=== PATIENT | male | born 1985 | race Caucasian/White ===

== ENCOUNTER 2022-08-28 22:35 | Emergency (ER) | payer MEDICAID, SELFPAY ==
[2022-08-28 22:43] VITALS: BP 122/76; PULSE 80; RESP 18; TEMP 37.8; O2SAT 97
--- NOTE | 2022-08-28 23:35 | W.ED.FEVER ---
HPI - Fever General: Chief Complaint: Fever Stated Complaint: fever, n/v/d Time Seen by Provider: 08/28/22 23:35 History of Present Illness: Mr. Correa is a 36-year-old gentleman with history of smoking presenting to the ER for respiratory symptoms. Reports congestion and sinus pain for approximately 1 week. Has now also developed fevers, cough, sore throat, congestion, nausea vomiting, generalized malaise. Density symptoms is moderate. Worse with exertion and coughing. No other specific changes in health, exacerbating, or alleviating factors identified. Onset (ago): day(s) Exacerbating factors: exertion Relieving factors: nothing Associated symptoms: Reports chills, cough and headache(s) Review of Systems General: Reports: 10 or more systems reviewed and unremarkable except in HPI and below Const: Reports: chills Neuro: Reports: headache(s) PFS ED PFSH: Medical History (Updated 09/04/22 @ 20:25 by Amilcar Razo MD) No significant past medical history Surgical History (Updated 09/04/22 @ 20:25 by Amilcar Razo MD) No significant past surgical history Physical Exam Const: COMMON NORMALS: alert GENERAL APPEARANCE: cooperative and well developed HENMT: COMMON NORMALS: normocephalic and atraumatic HEAD & SCALP: normocephalic and atraumatic THROAT: posterior oropharynx normal Eye: COMMON NORMALS: conjunctivae normal CONJUNCTIVA: Yes conjunctivae normal SCLERA: sclerae normal Neck/C-Spine: COMMON NORMALS: supple GENERAL: Yes trachea midline Resp: COMMON NORMALS: normal respiratory effort EFFORT & INSPECTION: Yes able to speak in complete sentences AUSCULTATION: bronchial breath sounds Cardio: COMMON NORMALS: regular rate and regular rhythm RATE: regular rate RHYTHM: regular rhythm GI: COMMON NORMALS: Soft to palpation PALPATION: Yes Soft to palpation and No Tenderness to palpation present (GI) Extremity: GENERAL: Yes normal exam except as noted and No edema Neuro: COMMON NORMALS: moves all extremities SENSORIUM/ORIENTATION: Yes alert and No Orientation impaired Psych: COMMON NORMALS: mental status grossly normal and Normal thought process present THOUGHT PROCESS: Normal thought process present Course Vital Signs: Vital signs: Vital Signs Temperature 99.7 F H 08/29/22 02:00 Pulse Rate 77 08/29/22 02:00 Respiratory Rate 20 H 08/29/22 02:00 Blood Pressure 132/89 08/29/22 02:00 Pulse Oximetry 93 08/29/22 02:00 Oxygen Delivery Me thod Room Air 08/29/22 00:29 MDM - Fever Medical Decision Making 36-year-old male presenting with respiratory symptoms that have been worsening. Mildly ill however nontoxic on exam. Labs with mild leukocytosis, normal hemoglobin, no significant metabolic abnormality, rapid swabs negative. Chest x-ray with left lower lobe possible abnormality, no definitive lobar consolidation or pneumothorax. Patient improved with ED treatment, Tessalon Perles, fluids, steroids, antibiotic. Patient most likely has sinusitis and bronchitis which are bacterial in nature. The results of ED evaluation were discussed with the patient including prescriptions and/or symptomatic cares (if applicable) including appropriate and responsible use, followup plan, and return precautions. The patient verbalized understanding and felt safe for discharge. Medical Records I reviewed the patient's medical records. Lab Data I reviewed the patient's lab results. 08/28/22 23:42 08/28/22 23:42 Radiology Impressions Chest X-Ray 08/28/22 23:41 IMPRESSION: 1. Small areas of left lung base atelectasis, scarring, or, less likely, developing airspace disease. Advise correlation. 2. Mild cardiomegaly. Laboratory Results WBC 10.9 10^3/uL (4.0-10.0) H 08/28/22 23:42 RBC 5.03 10^6/uL (4.1-5.3) 08/28/22 23: Hgb 15.8 g/dL (11.7-16.6) 08/28/22 23: Hct 45.7 % (42.0-52.0) 08/28/22 23: MCV 90.9 fl (80-94) 08/28/22 23: MCH 31.4 pg (28.0-34.0) 08/28/22 23: MCHC 34.6 g/dL (30.0-36.0) 08/28/22 23: RDW 12.0 % (12.1-15.1) L 08/28/22 23: Plt Count 295 10^3/cmm (130-400) 08/28/22 23: MPV 9.7 fL (7.4-10.4) 08/28/22 23:42 Neut % (Auto) 60.8 % 08/28/22 23:42 Lymph % (Auto) 25.0 % 08/28/22 23:42 [place] % (Auto) 11.6 % 08/28/22 23:42 Eos % (Auto) 1.8 % 08/28/22 23:42 Baso % (Auto) 0.6 % 08/28/22 23:42 Neut # (Auto) 6.62 10^3/uL (1.8-7.7) 08/28/22 23:42 Lymph # (Auto) 2.7 10^3/uL (0.8-4.8) 08/28/22 23:42 [place] # (Auto) 1.3 10^3/uL (0.2-0.9) H 08/28/22 23:42 Eos # (Auto) 0.2 10^3/uL (0.0-0.8) 08/28/22 23:42 Baso # (Auto) 0.1 10^3/uL (0.0-0.1) 08/28/22 23:42 Nucleated RBC % (auto) 0 % 08/28/22 23: Nucleated RBCs # 0.0 /100WBC 08/28/22 23:42 Sodium 137 mmol/L (136-145) 08/28/22 23:42 Potassium 3.9 mmol/L (3.5-5.1) 08/28/22 23:42 Chloride 103 mmol/L (98-107) 08/28/22 23:42 Carbon Dioxide 23 mmol/L (22-29) 08/28/22 23:42 Anion Gap 14.9 (5-19) 08/28/22 23:42 BUN 8 mg/dL (6-20) 08/28/22 23:42 Creatinine 0.7 mg/dL (0.7-1.2) 08/28/22 23:42 GFR Calculation 126.9 mL/min (90-130) 08/28/22 23:42 Glucose 95 mg/dL (65-115) 08/28/22 23:42 Calculated Osmolality 282 mOsm/kg (285-295) L 08/28/22 23:42 Calcium 9.3 mg/dL (8.5-10.5) 08/28/22 23:42 Total Bilirubin 0.3 mg/dL (0.15-1.2) 08/28/22 23:42 AST 20 U/L (0-40) 08/28/22 23:42 ALT 30 U/L (0-41) 08/28/22 23:42 Alkaline Phosphatase 95 U/L (40-130) 08/28/22 23:42 Total Protein 6.9 g/dL (6.6-8.7) 08/28/22 23:42 Albumin 3.6 g/dL (3.5-5.2) 08/28/22 23:42 Globulin 3.3 g/dL (1.3-4.6) 08/28/22 23:42 Urine Color Yellow (Yellow) 08/29/22 00:36 Urine Appearance Clear (CLEAR) 08/29/22 00:36 Urine pH 6 (5-7) 08/29/22 00:36 Ur Specific [place] 1.015 (1.005-1.030) 08/29/22 00:36 Urine Protein Neg (Negative) 08/29/22 00:36 Urine Glucose (UA) Norm (Normal) 08/29/22 00:36 Urine Ketones Negative (Negative) 08/29/22 00:36 Urine Blood Neg (Negative) 08/29/22 00:36 Urine Nitrate Negative (Negative) 08/29/22 00:36 Urine Bilirubin Neg (Negative) 08/29/22 00:36 Urine Urobilinogen Norm mg/dL (Negative) 08/29/22 00:36 Ur Leukocyte Esterase Negative (Negative) 08/29/22 00:36 Influenza Type A Ag negative (Negative) 08/29/22 00:36 Influenza Type B Ag negative (Negative) 08/29/22 00:36 SARS-CoV-2 Ag (Rapid) negative (Negative) 08/29/22 00:36 Group A Strep Rapid Negative (Negative) 08/29/22 00:36 Discharge Plan Discharge Patient Disposition: Home Clinical Impression: Sinusitis, Bronchitis Condition: Stable Prescriptions: New albuterol sulfate 90 mcg/actuation HFA aerosol inhaler 2 inh inhalation Q4H PRN (Reason: shortness of breath or wheezing) Qty: 8.5 0RF amoxicillin-pot clavulanate 875-125 mg tablet 1 tab PO BID Qty: 20 0RF Discharge Orders: Discharge ED (Routine); Ordered 08/29/22 Ordered By: Amilcar Razo Patient Instructions: How to Stop Smoking (ED), Sinusitis (ED), Acute Bronchitis (ED) Activity Restrictions/Additional Instructions: Thank you for visiting the emergency department. You were seen and evaluated for respiratory illness. The exact cause of your symptoms is unclear though given duration of symptoms and description of symptoms as well as physical exam findings will be treated with antibiotics. I will prescribe steroids and antibiotics. Please also use your albuterol metered-dose inhaler 2 puffs every 4 hours for 24 hours followed by 2 puffs every 6 hours for 24 hours followed by 2 puffs every 8 hours for 24 hours and then return to the normal schedule. Please follow-up with a primary care provider. I recommend quitting smoking. Return to the emergency department for uncontrolled symptoms or anything else that you are concerned about and feel needs emergency department evaluation. Coding Level of Care Code ED [employer] Faculty Member for Miriam Suarez
[2022-08-28 23:36] VITALS: BP 132/89; PULSE 100; RESP 16; TEMP 37.6; O2SAT 96
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
[2022-08-28 23:59] LABS: Basophils # 0.1 10^3/uL (0.0-0.1); Basophils % 0.6 %; Eosinophils # 0.2 10^3/uL (0.0-0.8); Eosinophils % 1.8 %; Hematocrit 45.7 % (42.0-52.0); Hemoglobin 15.8 g/dL (11.7-16.6); Lymphocytes # 2.7 10^3/uL (0.8-4.8); Mean Corpuscular HGB Conc 34.6 g/dL (30.0-36.0); Mean Corpuscular Hemoglobin 31.4 pg (28.0-34.0); Mean Corpuscular Volume 90.9 fl (80-94); Mean Platelet Volume 9.7 fL (7.4-10.4); Monocytes # 1.3 10^3/uL (0.2-0.9); Monocytes % 11.6 %; Neutrophils # 6.62 10^3/uL (1.8-7.7); Neutrophils % 60.8 %; Nucleated Red Blood Cells % 0 %; Platelet Count 295 10^3/cmm (130-400); Red Blood Count 5.03 10^6/uL (4.1-5.3); White Blood Count 10.9 10^3/uL (4.0-10.0)
[2022-08-29 00:15] LABS: Alanine Aminotransferase 30 U/L (0-41); Albumin Level 3.6 g/dL (3.5-5.2); Alkaline Phosphatase 95 U/L (40-130); Anion Gap 14.9 (5-19); Aspartate Amino Transferase 20 U/L (0-40); Blood Urea Nitrogen 8 mg/dL (6-20); Calcium 9.3 mg/dL (8.5-10.5); Carbon Dioxide 23 mmol/L (22-29); Chloride 103 mmol/L (98-107); Globulin 3.3 g/dL (1.3-4.6); Glomerular Filtration Rate 126.9 mL/min (90-130); Glucose 95 mg/dL (65-115); Osmolality Calculated 282 mOsm/kg (285-295); Potassium 3.9 mmol/L (3.5-5.1); Sodium 137 mmol/L (136-145); Total Bilirubin 0.3 mg/dL (0.15-1.2); Total Protein 6.9 g/dL (6.6-8.7)
[2022-08-29] MEDS: ipratropium-albuterol 3 mL Neb INHALATION (00:22)
[2022-08-29 00:24] VITALS: PULSE 82; RESP 20; O2SAT 99
[2022-08-29 00:29] VITALS: PULSE 77; RESP 20; O2SAT 100
[2022-08-29] MEDS: benzonatate 100 mg Capsule PO (00:42)
[2022-08-29] MEDS: sodium chloride 0.9% 1,000 ML 999 ML IV (00:44)
[2022-08-29 00:49] VITALS: BP 132/89; O2SAT 93
[2022-08-29 00:57] LABS: Add Urine Microscopic? NO; Charge for UA Resulting for Rev
[2022-08-29 00:59] LABS: Bilirubin Urine Neg (Negative); Blood Urine Neg (Negative); Glucose Urine UA Norm (Normal); Ketones Urine Negative (Negative); Leukocyte Esterase Urine Negative (Negative); Nitrate Urine Negative (Negative); Protein Urine Neg (Negative); Specific Gravity, Urine 1.015 (1.005-1.030); Urine Appearance Clear (CLEAR); Urine Color Yellow (Yellow); Urobilinogen Urine Norm (Negative); pH Urine 6 (5-7)
[2022-08-29 01:07] LABS: Rapid Strep A Test Negative (Negative)
[2022-08-29 01:14] LABS: Influenza A by IFA negative (Negative); Influenza B by IFA negative (Negative); SARS Covid-2 Antigen negative (Negative)
[2022-08-29] MEDS: amoxicillin-clav 875-125 mg Tablet 1 TAB PO (01:52)
[2022-08-29 02:00] VITALS: BP 132/89; PULSE 77; RESP 20; TEMP 37.6; O2SAT 93
--- NOTE | 2022-09-03 13:17 | DCPLANNER ---
academic manager called patient due to no primary care physician - patient stated that he is wanting to wait to get a primary care physician until he gets insurance. academic manager gave patient the information to [facility], where he can apply for the sliding scale.
== END 2022-08-29 02:04 | disposition home or self-care (01) ==
PROVIDERS: Emergency Provider Emergency Medicine
DX: J32.9 Chronic sinusitis, unspecified (principal); J40 Bronchitis, not specified as acute or chronic
CPT/HCPCS: 71045; 80053; 81003; 85025; 87081; 87426; 87804; 87880; 94640; 96374; 99284; J2930; J7030

== ENCOUNTER 2022-12-13 07:59 | Inpatient (IN) | payer MEDICAID, SELFPAY ==
[2022-12-13 08:05] VITALS: BP 154/97; PULSE 82; RESP 20; O2SAT 98
[2022-12-13 08:07] VITALS: BMI 34.4
[2022-12-13 08:14] VITALS: TEMP 36.8
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
[2022-12-13 08:41] LABS: Basophils # 0.1 10^3/uL (0.0-0.1); Basophils % 1.2 %; Eosinophils # 0.2 10^3/uL (0.0-0.8); Eosinophils % 2.5 %; Hematocrit 46.2 % (42.0-52.0); Hemoglobin 15.8 g/dL (11.7-16.6); Lymphocytes # 2.9 10^3/uL (0.8-4.8); Lymphocytes % 35.3 %; Mean Corpuscular HGB Conc 34.2 g/dL (30.0-36.0); Mean Corpuscular Hemoglobin 31.2 pg (28.0-34.0); Mean Corpuscular Volume 91.1 fl (80-94); Mean Platelet Volume 10.1 fL (7.4-10.4); Monocytes # 0.6 10^3/uL (0.2-0.9); Monocytes % 7.7 %; Neutrophils # 4.28 10^3/uL (1.8-7.7); Neutrophils % 53.1 %; Nucleated Red Blood Cells % 0 %; Platelet Count 269 10^3/cmm (130-400); Red Blood Count 5.07 10^6/uL (4.1-5.3); White Blood Count 8.1 10^3/uL (4.0-10.0)
--- NOTE | 2022-12-13 08:41 | PC.PHAR ---
PT STATES HE DOES TAKE MEDICATIONS. WAITING FOR PHARMACY CONFIRMATION FROM [place].
[2022-12-13 08:42] LABS: Amphetamines Screen Urine Negative (Negative); Barbiturates Screen Urine Negative (Negative); Benzodiazepines Screen Urine Negative (Negative); Cocaine Screen Urine Negative (Negative); Opiate Screen Urine Negative (Negative); PCP Screen Urine Negative (Negative); THC Screen Urine Negative (Negative)
--- NOTE | 2022-12-13 08:46 | PC.PHAR ---
[facility] [place], [place], IS NOT OPEN ON SAT AND SUN. UNABLE TO VERIFY PT'S MEDS. HE STATES HE TAKES PROTONIX 40 MG AND ABLILIFY (UNKNOWN STRENGTH)
[2022-12-13] MEDS: LORazepam 2 mg Tablet PO (08:56)
[2022-12-13 09:11] LABS: Alanine Aminotransferase 28 U/L (0-41); Alkaline Phosphatase 108 U/L (40-130); Anion Gap 15.7 (5-19); Aspartate Amino Transferase 24 U/L (0-40); Blood Urea Nitrogen 13 mg/dL (6-20); Calcium 9.3 mg/dL (8.5-10.5); Carbon Dioxide 20 mmol/L (22-29); Chloride 104 mmol/L (98-107); Globulin 2.6 g/dL (1.3-4.6); Glomerular Filtration Rate 108.2 mL/min (90-130); Glucose 107 mg/dL (65-115); Osmolality Calculated 283 mOsm/kg (285-295); Potassium 3.7 mmol/L (3.5-5.1); Sodium 136 mmol/L (136-145); Total Bilirubin 0.2 mg/dL (0.15-1.2); Total Protein 6.6 g/dL (6.6-8.7)
[2022-12-13 09:43] LABS: Acetaminophen < 5.0 ug/mL (10-30); Alcohol Level < 10 mg/dL (0-10); Salicylate < 0.3 mg/dL (3-10)
[2022-12-13 10:42] VITALS: BP 117/75; PULSE 72; RESP 16; TEMP 36.9; O2SAT 97
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
[2022-12-13] MEDS: acetaminophen 325 mg Tablet 650 MG PO (12:21)
[2022-12-13 14:00] VITALS: BP 110/69; PULSE 65; RESP 15; TEMP 36.6; O2SAT 96
[2022-12-13] MEDS: hyDROXYzine 25 mg Capsule 50 MG PO (16:46)
--- NOTE | 2022-12-13 16:47 | PC.NURSE ---
Patient requesting medication for anxiety, states he knows when he is getting anxious because his heart starts beating faster. Patient said in a very angry tone that he is tired of hearing her (in reference to another patient) yell all day and that he knows it is all for show. This RN reassured patient that every patient is here for a reason and offered vistaril 50mg PO, which patient took.
[2022-12-13 19:36] VITALS: BP 111/65; PULSE 90; RESP 18; TEMP 37.2; O2SAT 95
[2022-12-13] MEDS: nicotine 4 mg lozenge MUCOUS MEM (21:49)
[2022-12-14 06:00] VITALS: BP 112/71; PULSE 78; RESP 18; TEMP 36.6; O2SAT 96
[2022-12-14] MEDS: nicotine 4 mg lozenge MUCOUS MEM ×4 (12:40→20:33)
[2022-12-14 13:39] VITALS: BP 122/80; PULSE 83; RESP 16; TEMP 36.8; O2SAT 98
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
[2022-12-14] MEDS: hyDROXYzine 25 mg Capsule 50 MG PO (16:23)
[2022-12-14] MEDS: ARIPiprazole 10 mg Tablet 5 MG PO (17:31)
[2022-12-14 20:00] VITALS: BP 112/80; PULSE 101; RESP 18; TEMP 36.8; O2SAT 96
[2022-12-14] MEDS: OLANZapine 5 mg ODT PO (20:33)
--- NOTE | 2022-12-14 21:08 | PC.NURSE ---
COMPLETED ASSESSMENT IN ROOM. STATES HE IS VERY ANXIOUS AND NEEDS SOMETHING. PT TOOK VISTARIL ON LAST SHIFT AND HE REPORTS IT HELPED BUT HE IS STILL RESTLESS DUE TO ANOTHER PT YELLING AND SCREAMING. DENIES PAIN. DENIES SI/HI AND AVH AT THIS TIME. PT STATES PRIOR TO COMING IN HE WAS SUICIDAL AND WANTED TO DRIVE HIS CAR INTO A TREE. PT STATES HE HAS NO PLAN AT THIS TIME AND STATES MANY REASONS TO LIVE.
[2022-12-15 06:00] VITALS: BP 107/66; PULSE 60; RESP 16; O2SAT 92
[2022-12-15] MEDS: ARIPiprazole 10 mg Tablet PO (08:22)
[2022-12-15] MEDS: nicotine 4 mg lozenge MUCOUS MEM ×5 (11:09→23:33)
[2022-12-15] MEDS: OLANZapine 5 mg ODT PO (11:11)
--- NOTE | 2022-12-15 11:13 | PC.NURSE ---
Administered zyprexa 5mg odt to patient. Patient becoming very agitated, clenching his fists due to another patient's behaviors. His face began getting red, he started speaking through his teeth, and became tearful. This RN asked the patient if he would like to go to the other hallway to go to group where it would be quieter and he agreed.
[2022-12-15 14:00] VITALS: BP 120/73; PULSE 82; RESP 16; TEMP 36.4; O2SAT 94
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
[2022-12-15 20:15] VITALS: BP 103/64; PULSE 82; RESP 16; TEMP 37.1; O2SAT 92
[2022-12-15] MEDS: hyDROXYzine 25 mg Capsule 50 MG PO (23:33)
--- NOTE | 2022-12-15 23:34 | PC.NURSE ---
PT INCREASINGLY AGITATED. VISTARIL 50 MG PO GIVEN NEEDED. PT IS REQUESTING HE BE DISCHARGED IN THE MORNING DUE TO HAVING AN EYE APT TOMORROW. PT WAS EDUCATED THAT HE HAS A 96 HOUR HOLD. PT IS UPSET ABOUT BEING ON A HOLD BUT UNDERSTANDS WHY HE WAS PLACED ON ONE. STATES HE CAME IN TO GET HIS MEDICATIONS ADJUSTED AND FEELS HE IS READY TO DISCHARGE. PT ENCOURAGED TO SPEAK TO DR. RIVERA IN THE AM DUE TO THE HAVING TO BE THE ONE WHO RELEASES HIM. ALL QUESTIONS ANSWERED AND SUPPORT VOICED. PT STARTED ABILIFY 10 MG TODAY.
--- NOTE | 2022-12-16 00:15 | PC.NURSE ---
PT AT NURSES STATION AND SHOWS THIS RN THAT HE HAS CHIGGER BITES TO BILATERAL LOWER EXTREMITIES THAT ARE ITCHING HIM. MULTIPLE BITES VISUALIZED, NO DRAINAGE NOTED. NEW ORDERS RECEIVED FOR HYDROCORTISONE CREAM 1% TOPICAL TO LOWER EXTREMITIES QID PRN FOR ITCHING/RASH. EDUCATED PT ON NEW ORDERS AND MEDICATION. VOICES UNDERSTANDING.
--- NOTE | 2022-12-16 03:00 | PC.NURSE ---
PT WAS GIVEN VISTARIL AT 2333 DUE TO INCREASED AGITATION. PT WAS GIVEN VISTARIL 50 MG ORDERED. PT WENT TO LAY DOWN AND HAS BEEN RESTING SINCE. NO DISTRESS IS NOTED.
[2022-12-16 06:00] VITALS: BP 113/67; PULSE 70; RESP 16; O2SAT 94
[2022-12-16] MEDS: ARIPiprazole 10 mg Tablet PO (09:02)
[2022-12-16] MEDS: pantoprazole DR 40 mg Tablet PO (09:02)
[2022-12-16] MEDS: nicotine 4 mg lozenge MUCOUS MEM (09:02)
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
[2022-12-16 10:21] VITALS: BP 113/67; PULSE 70; RESP 16; TEMP 36.3; O2SAT 94
== END 2022-12-16 11:11 | disposition home or self-care (01) | DRG 881 ==
LOC: ER 08:52 → NP 08:56
PROVIDERS: Physician Assistant; Admitting Provider Psychiatry & Neurology Psychiatry; Emergency Provider Family Medicine; Visit Provider Psychiatry & Neurology Psychiatry
DX: F32.A Depression, unspecified (principal); R45.851 Suicidal ideations; F31.9 Bipolar disorder, unspecified; F90.9 Attention-deficit hyperactivity disorder, unspecified type; R45.87 Impulsiveness; Z81.8 Family history of other mental and behavioral disorders; Z62.811 Personal history of psychological abuse in childhood
CPT/HCPCS: 73130; 80053; 80306; 80307; 85025; 97150; 97165; 99238; 99285

== ENCOUNTER → 2023-05-04 11:32 | Outpatient (BNVA) | payer MEDICAID, SELFPAY | PROVIDERS: PCP Family Medicine Adult Medicine; Visit Provider Nurse Practitioner Family | DX: G43.909 Migraine, unspecified, not intractable, without status migrainosus (principal); R51.9 Headache, unspecified; J06.9 Acute upper respiratory infection, unspecified | CPT/HCPCS: 87400; 87426 ==

== ENCOUNTER 2023-06-12 12:23 | Emergency (ER) | payer MEDICAID, SELFPAY ==
[2023-06-12 12:25] VITALS: BP 135/74; PULSE 65; RESP 15; TEMP 36.5; O2SAT 97
--- NOTE | 2023-06-12 12:27 | W.ED.HA ---
HPI - Headache General: Chief Complaint: Headache Stated Complaint: headache Time Seen by Provider: 06/12/23 12:27 History of Present Illness: 37-year-old male presents emergency department complaints of a headache he states he has a longstanding history of chronic migraines and this feels very similar to his previous. He states he does have change in vision which is normal for his migraines. He states he is currently a 7 out of 10 throbbing headache on the right side. He states that he is light sensitive as well as has worsening headache with loud sounds. He states it is made better by a quiet dark room. He states he is had to come to the emergency department in the past to receive medications to help break his headache. Review of Systems General: Reports: 10 or more systems reviewed and unremarkable except in HPI and below Neuro: Reports: headache(s) [facility] ED PFSH: Medical History (Updated 06/12/23 @ 13:11 by Mathieu Membreno MD) Generalized anxiety disorder Plantar fasciitis of right foot Asthma GERD (gastroesophageal reflux disease) Migraine headache Erectile dysfunction Psychiatric care No significant past medical history Surgical History No significant past surgical history Physical Exam Narrative: EXAM NARRATIVE: Constitutional: the patient appears well nourished and with normal development. Vital signs reviewed as documented. HENMT: Normocephalic, atraumatic. External ears normal appearance without drainage. Nose without drainage, normal appearance. Mucus membranes moist. Neck is supple, No jugular venous distension, trachea is midline, no appreciable carotid bruits. No lymphadenopathy. No meningeal signs. No nuchal rigidity. Flexion, extension and lateral rotation is without pain. Eyes: Pupils are equal, round, reactive to light and accommodation. No scleral icterus. Extra-ocular movement are intact. He is photosensitive to light and loud sounds Thorax is symmetrical and with equal rise and fall with respirations. Resp: Lungs are clear to auscultation. No wheezes, rales, crackles or ronchi at present. Cardio: Regular rate and rhythm. Positive S1, S2. No appreciable murmurs, rubs or gallops. GI: Abdominal exam reveals normal bowel sounds to all quadrants. No organomegaly. No obvious palpable masses noted. No hepatomegally appreciated. Soft, non-tender to palpation. Extremity: Extremities are non-edematous and both femoral and pedal pulses are 2+ and equal bilaterally. Moves all extremities well, sensation in all extremities. Neuro: Alert and oriented x4, person, place, time and situation. Cranial nerves II through XII are grossly intact, there is no focal neurological deficits that I can appreciate at present. Motor strength in the upper and lower extremities are equal and bilateral 5/5. Psych: Cooperative, calm, normal thought process, appropriate judgment. Skin: No lesions, rashes. No gross abnormalities noted. Back: Symmetrical, no obvious deformity, No CVA tenderness Course Vital Signs: Vital signs: Vital Signs Temperature 97.7 F 06/12/23 13:25 Pulse Rate 84 06/12/23 13:25 Respiratory Rate 15 06/12/23 13:25 Blood Pressure 135/74 06/12/23 13:25 Pulse Oximetry 97 06/12/23 13:25 Oxygen Delivery Me thod Room Air 06/12/23 12:34 MDM - Headache Medical Decision Making 37-year-old male chronic history of migraines I will provide him intramuscular medications and have him follow-up as needed. Medical Records I reviewed the patient's medical records. No radiology studies performed this visit Discharge Plan Discharge Patient Disposition: Home Clinical Impression: Migraine headache Qualifiers: Migraine type: unspecified Status migrainosus presence: without status migrainosus Intractability: not intractable Qualified Code(s): G43.909 - Migraine, unspecified, not intractable, without status migrainosus Condition: Stable Prescriptions: No Action albuterol sulfate 90 mcg/actuation HFA aerosol inhaler 2 inh inhalation Q4H PRN (Reason: shortness of breath or wheezing) Qty: 8.5 2RF aripiprazole 10 mg tablet 10 mg PO DAILY 30 Days Qty: 30 2RF hydroxyzine HCl 25 mg tablet 25 mg PO BID PRN (Reason: Anxiety) 30 Days Qty: 60 5RF Protonix 40 mg tablet,delayed release (DR/EC) 40 mg PO DAILY PRN (Reason: acid reflux) Qty: 60 2RF rizatriptan [Maxalt] 10 mg tablet 10 mg PO Q2H PRN (Reason: Migraine Headache) 30 Days Qty: 30 3RF Rx Instructions: do not exceed 3 doses per 24 hrs Cialis 5 mg tablet 5 mg PO DAILY 30 Days Qty: 30 3RF Rx Instructions: take approximately 30min before sexual activity; do not use more than 1 dose per 24hrs Discharge Orders: Discharge ED (Routine); Ordered 06/12/23 Ordered By: Mathieu Membreno Referrals: Landen Duran MD [Primary Care Provider] - Discharge Diet: Advance as tolerated Discharge Activity: Resume usual activity Patient Instructions: Opioid Safety, Pain Management Stand Alone Forms: Work/School Release Coding Level of Care Code ED Product Safety Associate for Miriam Suarez
[2023-06-12 12:34] VITALS: BP 135/74; PULSE 84; RESP 15; O2SAT 97
[2023-06-12] MEDS: ketorolac 60 mg/2 mL INJ IM (12:53)
[2023-06-12] MEDS: diphenhydrAMINE 50 mg/mL SDV 1mL 25 MG IM (12:53)
[2023-06-12] MEDS: metoclopramide 5 mg/mL SDV 2 mL 10 MG IM (12:54)
[2023-06-12 13:25] VITALS: BP 135/74; PULSE 84; RESP 15; TEMP 36.5; O2SAT 97
== END 2023-06-12 13:26 | disposition home or self-care (01) ==
PROVIDERS: Emergency Provider Internal Medicine; PCP Family Medicine Adult Medicine
DX: G43.909 Migraine, unspecified, not intractable, without status migrainosus (principal)
CPT/HCPCS: 96372; 99284; J1200; J1885; J2765

== ENCOUNTER 2024-05-23 20:00 | Outpatient (CLI) | payer MEDICAID, SELFPAY | END 2024-05-23 20:01 | disposition home or self-care (01) | LOC: SLEEP 22:59 | PROVIDERS: PCP Family Medicine Adult Medicine; Visit Provider Family Medicine | DX: G47.33 Obstructive sleep apnea (adult) (pediatric) (principal) | CPT/HCPCS: 95810 ==

== ENCOUNTER 2024-10-24 10:08 | Emergency (ER) | payer MEDICAID, SELFPAY ==
[2024-10-24 10:15] VITALS: BP 132/83; PULSE 70; RESP 20; TEMP 36.7; O2SAT 96
--- NOTE | 2024-10-24 10:17 | ECG_ITS ---
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 Measurements Intervals [place] Rate: 65 P: -1 DC: 148 QRS: -10 QRSD: 86 T: 11 QT: 374 QTc: 392 Interpretive Statements SINUS RHYTHM No previous ECG available for comparison Electronically Signed On 10-26-2024 22:10:44 CDT by Kimberlee Mejia M.D. [id number] [id number]
--- NOTE | 2024-10-24 10:17 | CT_ITS ---
WS: [id number] CT HEAD NONCONTRAST HISTORY: Symptoms of acute stroke, LEFT arm numbness. TECHNIQUE: Contiguous axial imaging performed through the brain. Bone and soft tissue windows. Sagittal and coronal reformats reviewed. All CT scans at [facility] use at least one of these dose optimization techniques: automated exposure control; mA and/or kV adjustment per patient size (includes targeted exams where dose is matched to clinical indication); or iterative reconstruction. DLP: 1207.02 mGy COMPARISON: None available. No acute intracranial hemorrhage, midline shift or mass effect. No atrophy or prior infarcts or herniation. Ventricles: Normal size with no hydrocephalus. Paranasal sinuses: As visualized are clear. Mastoid air cells: Well pneumatized. Calvarium and scalp: Skull is intact with no soft tissue edema or swelling. CT/CT head thrombolytic [id number] IMPRESSION: Negative head CT. Notified Magdalena Espinosa MD at 10/24/2024 10:30 AM.
--- NOTE | 2024-10-24 10:17 | XR_ITS ---
WS: [id number] PORTABLE CHEST HISTORY: cva COMPARISON: 12/13/2022 Lungs are clear and well expanded. No pleural effusion or pneumothorax. Cardiac size: Normal. Mediastinum/Aorta: Normal mediastinum. No osseous abnormality seen. XR/XR chest 1V portable [id number] IMPRESSION: Unremarkable portable chest.
[2024-10-24 10:37] LABS: Glucose Point of Care 95 mg/dL (70-110)
[2024-10-24 10:39] LABS: Basophils # 0.1 10^3/uL (0.0-0.1); Basophils % 1.5 %; Eosinophils # 0.3 10^3/uL (0.0-0.8); Eosinophils % 5.3 %; Hematocrit 47.2 % (37-53); Lymphocytes # 2.2 10^3/uL (0.8-4.8); Lymphocytes % 41.2 %; Mean Corpuscular HGB Conc 35.2 g/dL (30-55); Mean Corpuscular Hemoglobin 31.7 pg (27-33); Mean Corpuscular Volume 90.1 fl (82-101); Mean Platelet Volume 9.2 fL (7.4-10.4); Monocytes # 0.5 10^3/uL (0.2-0.9); Monocytes % 9.9 %; Neutrophils # 2.21 10^3/uL (1.8-7.7); Neutrophils % 41.9 %; Nucleated Red Blood Cells % 0 %; Platelet Count 294 10^3/cmm (157-399); Red Blood Count 5.24 10^6/uL (3.85-5.65); Red Cell Distribution Width 11.9 % (12.1-15.1); White Blood Count 5.27 10^3/uL (3.29-11.43)
--- NOTE | 2024-10-24 10:52 | P.CONIM_ITS ---
Providers/Reason For Consult 2 Consulting Physician/Specialty*: Sven Vernon MD neurology and epilepsy Reason for Consult*: Stroke alert emergency department room #16 Primary Care Provider: Thomas Donaldson MD History of Present Illness History of Present Illness Ranulfo Correa is a 38 year old male with a history of gastroesophageal reflux disease. The patient stated that at 8 AM on 10/24/2024 he woke up from sleep. He stated that when he sat up in bed he experienced lightheadedness associated with nausea and vomiting. The patient stated that he went to the bathroom to throw up. He stated that he normally awakens around 7 AM with nausea and vomiting related to his gastroesophageal reflux disease but on the morning of 10/24/2024 he was not experiencing any abdominal issues or any reflux symptoms. The patient stated that around 9 AM on 10/24/2024 he began experiencing numbness tingling and pain in the left upper extremity from his shoulder down to his hands as well as some left lower chest pain. Approximately 30 minutes later at 9:30 AM he began to also experience paresthesias and pain in the upper left thigh. Patient denied any visual difficulty, speech difficulty, or facial numbness. The patient presented to the [facility] emergency department. Stroke alert was initiated at 10:17 AM on 10/24/2024. NIH stroke score = 2 9 secondary to decrease sensation to pinprick left arm and left leg =1, extinction on double sensory stimulation on the left =1). Point of contact glucose Accu-Chek = [address] negative for acute findings Drug allergies: None Current medications: Albuterol sulfate 90 mcg per accusation 2 puffs every 6 hours as needed for shortness of breath Aripiprazole 10 mg to use as instructed Calcium 1200 mg p.o. twice daily Vistaril 25 mg p.o. twice daily as needed Lactobacillus 1 capsule daily Protonix 40 mg p.o. daily as needed Maxalt 10 mg as needed migraine headache Tadalafil 5 mg p.o. daily for sexual activity Past medical history: Gastroesophageal reflux disease Copperhead bite on the right ankle 10/21/2013 requiring antivenom Migraine headache Former smoker Irritable bowel syndrome Generalized anxiety disorder Obesity Bipolar disorder Erectile dysfunction Habits: The patient smoked approximately 1-1/2 to 2 packs/day but quit 2 weeks ago. Family history: Maternal family members positive for hypertension, kidney disease, and senile dementia of the Alzheimer's type. The patient stated he is not familiar with his father side of the family. Occupation: The patient stated he is currently disabled Review of Systems 2 General: Reports: 10 or more systems reviewed and unremarkable except in HPI and below Medications/Allergies Home Medications ?Medication ?Instructions ?Recorded ?Confirmed ?Last Taken ?Type hydroxyzine HCl 25 mg tablet 25 mg PO BID PRN Anxiety 30 days 04/24/23 07/16/23 Unknown Rx #60 tabs pantoprazole 40 mg tablet,delayed 40 mg PO DAILY PRN a christopher reflux #60 04/24/23 07/16/23 Unknown Rx release (Protonix) tabs rizatriptan 10 mg tablet (Maxalt) 10 mg PO Q2H PRN Moustapha tiarra Headache 04/24/23 07/16/23 Unknown Rx 30 days #30 tabs tadalafil 5 mg tablet (Cialis) 5 mg PO DAILY sexual ac tivity 30 04/24/23 07/16/23 Unknown Rx days #30 tabs calcium polycarbophil 625 mg 1,250 mg (2 x 625 mg) PO BID 07/16/23 07/16/23 Unknown Rx tablet (FiberCon) irritable bowel #120 tabs lactobacillus combo no.13 1 1 cap PO DAILY probiotic f or bowel 07/16/23 07/16/23 Unknown Rx billion cell capsule,delayed #90 caps release (Probiotic Pearls Complete) aripiprazole 10 mg tablet See Rx Instructions .Route 0 07/28/23 Unknown Rx .COMPLEX #30 tabs albuterol sulfate 90 mcg/actuation 2 puff inhalation Q 6H PRN 10/01/23 Unknown Rx aerosol inhaler shortness of breath or wheez ing #6.7 grams Allergies Allergy/AdvReac Type Severity Reaction Status Date / Time No Known Allergies Allergy Verified 07/16/23 13:58 PFSH Acute 2 PFSH: Medical History (Updated 10/24/24 @ 11:02 by Sven Vernon MD) Plantar fasciitis of right foot Excessive weight gain Morbid obesity with BMI of 40.0-44.9, adult Former smoker Quit smoking ~ 06/18/2023 and nicotine vaping 07/09/2023 IBS (irritable bowel syndrome) Generalized anxiety disorder Asthma GERD (gastroesophageal reflux disease) Migraine headache Erectile dysfunction No significant past medical history Surgical History No significant past surgical history Vitals/I&O/Wt Last Vital Signs Temp 98.0 F 10/24/24 10:15 Pulse 70 10/24/24 10:15 Resp 20 H 10/24/24 10:15 BP 132/83 10/24/24 10:15 Pulse Ox 96 10/24/24 10:15 O2 Del Method Room Air 10/24/24 10:15 Weight last 48 hrs Weight 330 lb Physical Exam 2 Narrative: NIH stroke score = 2 9 secondary to decrease sensation to pinprick left arm and left leg =1, extinction on double sensory stimulation on the left =1). Point of contact glucose Accu-Chek = [address] negative for acute findings The patient is alert and oriented x 3. Speech fluent. Head normocephalic. Neck supple. Cranial nerves II through XII intact pupils 4 mm round reactive to light and accommodation. Extraocular movements intact. There were no obvious nystagmus. Visual alvarenga appear to be full via confrontation. Motor testing 5/5 bilaterally. There was no drift. Sensory examination patient revealed decreased sensation to touch on the left arm and left leg. Patient reported extinction on double sensory stimulation. Throat clear lungs clear heart regular rhythm and rate extremities were negative for cyanosis. Data 10/24/24 10:31 10/24/24 10:31 A&P Assessment and plan (1) Paresthesias: Impression: 1. Lightheadedness/dizziness followed by nausea and vomiting after awakening from sleep and sitting up in bed requiring patient to go to the bathroom followed by left arm and proximal left leg numbness and left-sided chest pain in patient with history of gastroesophageal reflux disease. Since the patient NIH stroke score =2. The patient was not a candidate for intravenous thrombolytics and no intravenous thrombolytics were administered. Patient's clinical history is suggestive of cardiac issues 2. Gastroesophageal reflux disease Plan: 1. Agree with cardiac evaluation and troponin levels 2. Recommend obtaining CT angiogram of the head and neck to assess for posterior circulations stenosis 3. Recommend obtaining fasting lipid profile 4. Recommend starting aspirin 81 mg p.o. every morning with food if no contraindications from GI standpoint or gastroesophageal reflux disease since patient reports a daily awakening with nausea and vomiting and gastroesophageal reflux 5. Recommend starting lipid-lowering agent per NIH stroke protocol if needed 6. Stroke education/stroke pamphlet for patient and family 7. Recommend obtaining outpatient noncontrast head MRI to assess for posterior circulation stroke 8. Schedule follow-up with family physician and in the [facility] neurology clinic (2) Dizziness: PDMP PDMP Reviewed: Not Reviewed Consult Attestations 2 Medical Necessity Statement: The patient was evaluated by neurology for stroke alert emergency department room #60 Coding Level of Care Code 74484 Diagnoses Paresthesias R20.2 Dizziness R42
[2024-10-24 10:55] LABS: INR 0.99 (0.8-1.2)
[2024-10-24 10:57] LABS: Alanine Aminotransferase 57 U/L (0-41); Albumin Level 4.3 g/dL (3.5-5.2); Alkaline Phosphatase 121 U/L (40-130); Anion Gap 13.1 (5-19); Aspartate Amino Transferase 30 U/L (0-40); Blood Urea Nitrogen 12 mg/dL (6-20); Calcium 9.1 mg/dL (8.5-10.5); Carbon Dioxide 23 mmol/L (22-29); Chloride 107 mmol/L (98-107); Creatinine Clr Calc Pharmacy 181.7895; Globulin 2.4 g/dL (1.3-4.6); Glomerular Filtration Rate 107.6 mL/min (90-130); Glucose 98 mg/dL (65-115); Osmolality Calculated 288 mOsm/kg (285-295); Potassium 4.1 mmol/L (3.5-5.1); Sodium 139 mmol/L (136-145); Total Bilirubin 0.4 mg/dL (0.15-1.2); Total Protein 6.7 g/dL (6.6-8.7); Troponin(5th) Baseline < 6 ng/L (0-15)
--- NOTE | 2024-10-24 10:58 | ED_ITS ---
HPI - Neuro Symptoms/Deficit 2 General: Chief Complaint: Neuro Symptoms/Deficit Stated Complaint: SOB, L arm tingling Time Seen by Provider: 10/24/24 10:14 History of Present Illness: 38-year-old male presents emergency room complaining of shortness of breath left arm tingling. Went to bed last night without any symptoms when he woke up this morning he had some dizziness some shortness of breath left arm tingling states his left arm is numb right now some very mild chest discomfort no difficulty with speech or swallowing. A stroke alert was called after the patient was seen in triage. Associated symptoms: Deny chest pain Related Data Home Medications ?Medication ?Instructions ?Recorded ?Confirmed tirzepatide (weight loss) 2.5 2.5 mg SUBCUT Q7D 10/24/24 mg/0.5 mL subcutaneous pen injector (Zepbound) Previous Rx's ?Medication ?Instructions ?Recorded hydroxyzine HCl 25 mg tablet 25 mg PO BID PRN Anxiety 30 days 04/24/23 #60 tabs pantoprazole 40 mg tablet,delayed 40 mg PO DAILY PRN a christopher reflux #60 04/24/23 release (Protonix) tabs rizatriptan 10 mg tablet (Maxalt) 10 mg PO Q2H PRN Moustapha tiarar Headache 04/24/23 30 days #30 tabs tadalafil 5 mg tablet (Cialis) 5 mg PO DAILY sexual ac tivity 30 04/24/23 days #30 tabs aripiprazole 10 mg tablet See Rx Instructions .Route 0 07/28/23 .COMPLEX #30 tabs albuterol sulfate 90 mcg/actuation 2 puff inhalation Q 6H PRN 10/01/23 aerosol inhaler shortness of breath or wheez ing #6.7 grams aspirin 81 mg tablet,delayed 81 mg PO DAILY #30 tabs 0 10/24/24 release Allergies Allergy/AdvReac Type Severity Reaction Status Date / Time No Known Allergies Allergy Verified 07/16/23 13:58 Review of Systems 2 Const: Denies: fever(s) or chills Card: Denies: chest pain Resp: Denies: dyspnea GI: Denies: abdominal pain : Denies: dysuria, urinary frequency or urinary urgency Musc: Denies: neck pain or back pain Skin/Breast: Denies: rash PFSH ED 2 PFSH: Medical History (Updated 10/24/24 @ 14:11 by Jose Meléndez, DO) Plantar fasciitis of right foot Excessive weight gain Morbid obesity with BMI of 40.0-44.9, adult Former smoker Quit smoking ~ 06/18/2023 and nicotine vaping 07/09/2023 IBS (irritable bowel syndrome) Generalized anxiety disorder Asthma GERD (gastroesophageal reflux disease) Migraine headache Erectile dysfunction No significant past medical history Surgical History No significant past surgical history NIH stroke score 2 NIHSS: Level Of Consciousness - 1a: 0 Level Of Consciousness Questions - 1b: Both Correct Level Of Consciousness Commands - 1c: Both Correct Best Gaze - 2: Normal Visual [place] - 3: No Visual Loss Facial Palsy - 4: N ormal Motor Arm Right - 5: No Drift Motor Arm Left - 5: No Drift Motor Leg Right - 6: No Drift Motor Leg Left - 6: No Drift Limb Ataxia - 7: A bsent Sensory - 8: Mild To Moderate Loss Best Language - 9: No Aphasia Dysarthia - 10: Normal Extinction And Inattention - 11: 0 Score: Total Score: 1 Physical Exam 2 Const: COMMON NORMALS: no acute distress GENERAL APPEARANCE: cooperative and comfortable ORIENTATION/CONSCIOUSNESS: Yes awake, Yes oriented to person, Yes oriented to place and Yes oriented to time HENMT: COMMON NORMALS: normocephalic, atraumatic and hearing grossly normal bilaterally HEAD & SCALP: normocephalic and atraumatic Resp: COMMON NORMALS: normal respiratory effort, No retractions, No use of accessory muscles and clear to auscultation bilaterally AUSCULTATION: clear to auscultation bilaterally Cardio: COMMON NORMALS: regular rate, regular rhythm and No murmurs present (Cardio) RATE: regular rate RHYTHM: regular rhythm GI: COMMON NORMALS: Soft to palpation and No hepatosplenomegaly present A USCULTATION: Yes normoactive bowel sounds PALPATION: Yes Soft to palpation, No Tenderness to palpation present (GI), No Guarding due to palpation present (GI) and Yes No hepatosplenomegaly present Extremity: COMMON NORMALS: normal to inspection, capillary refill normal, no clubbing, cyanosis or edema, no calf tenderness and no pedal edema Neuro: SENSORIUM/ORIENTATION: Yes oriented to person, Yes oriented to place and Yes oriented to time Skin: COMMON NORMALS: no rashes or lesions noted GENERAL SKIN EXAM: no rashes or lesions noted Course 2 Vital Signs: Vital signs: Vital Signs Temperature 98.0 F 10/24/24 10:15 Pulse Rate 57 L 10/24/24 13:58 Respiratory Rate 17 10/24/24 13:25 Blood Pressure 129/91 10/24/24 13:58 Pulse Oximetry 95 10/24/24 13:58 Oxygen Delivery Me thod Room Air 10/24/24 13:58 MDM - Neuro Symptoms/Deficit Medical Decision Making Patient initially was a stroke alert stroke score at best was [address] Vernon seen as well and also felt that this was likely not a stroke CTA head neck and CT head ordered negative for any acute pathology he did not develop any further symptoms when given pain medications all of his symptoms resolved. He has had frequent migraines in the past suspect this may have been a migraine. Will have her take a baby aspirin and follow-up with his primary care doctor at the time of discharge she has no symptoms no neurologic findings. Reviewed findings for the workup with the patient. Medical Records I reviewed the patient's medical records. Lab Data I reviewed the patient's lab results. 10/24/24 10:31 10/24/24 10:31 Radiology Impressions Chest X-Ray 10/24/24 10:17 IMPRESSION: Unremarkable portable chest. Head CT 10/24/24 10:17 IMPRESSION: Negative head CT. Notified Magdalena Espinosa MD at 10/24/2024 10:30 AM. Head/Neck CTA 10/24/24 11:21 IMPRESSION: 1. No carotid artery stenosis or occlusion. 2. Small caliber LEFT vertebral artery. No wall thickening or evidence for dissection is evident. 3. Small caliber LEFT transverse and sigmoid sinus. This is probably normal variant. No thrombus identified. 4. No aneurysms. Laboratory Results WBC 5.27 10^3/uL (3.29-11.43) 10/24/24 10:31 RBC 5.24 10^6/uL (3.85-5.65) 10/24/24 10:31 Hgb 16.60 g/dL (11.27-16.99) 10/24/24 10:31 Hct 47.2 % (37-53) 10/24/24 10:31 MCV 90.1 fl (82-101) 10/24/24 10:31 MCH 31.7 pg (27-33) 10/24/24 10:31 MCHC 35.2 g/dL (30-55) 10/24/24 10:31 RDW 11.9 % (12.1-15.1) L 10/24/24 10:31 Plt Count 294 10^3/cmm (157-399) 10/24/24 10:31 MPV 9.2 fL (7.4-10.4) 10/24/24 10:31 Neut % (Auto) 41.9 % 10/24/24 10:31 Lymph % (Auto) 41.2 % 10/24/24 10:31 [place] % (Auto) 9.9 % 10/24/24 10:31 Eos % (Auto) 5.3 % 10/24/24 10:31 Baso % (Auto) 1.5 % 10/24/24 10:31 Neut # (Auto) 2.21 10^3/uL (1.8-7.7) 10/24/24 10:31 Lymph # (Auto) 2.2 10^3/uL (0.8-4.8) 10/24/24 10:31 [place] # (Auto) 0.5 10^3/uL (0.2-0.9) 10/24/24 10:31 Eos # (Auto) 0.3 10^3/uL (0.0-0.8) 10/24/24 10:31 Baso # (Auto) 0.1 10^3/uL (0.0-0.1) 10/24/24 10:31 Nucleated RBC % (auto) 0 % 10/24/24 10:31 Nucleated RBCs # 0.0 /100WBC 10/24/24 10:31 PT 13.80 SECONDS (12.1-14.9) 10/24/24 10:31 INR 0.99 (0.8-1.2) 10/24/24 10:31 APTT 25.0 SECONDS (23.9-36.7) 10/24/24 10:31 Specimen Type Arterial 10/24/24 13:43 Sample Site Radial, left 10/24/24 13:43 ABG pH 7.38 (7.35-7.45) 10/24/24 13:43 ABG pCO2 43.5 mmHg (35-45) 10/24/24 13:43 ABG pO2 75.0 mmHg (80.0-100.0) L 10/24/24 13:43 ABG PO2/FiO2 Ratio 357 10/24/24 13:43 ABG HCO3 25.9 mmol/L (22-26) 10/24/24 13:43 ABG O2 Saturation 95.4 10/24/24 13:43 ABG Base Excess 0.4 mmol/L (-2.0-2.0) 10/24/24 13:43 Avni Test Pos 10/24/24 13:43 A-a O2 Gradient 2.6 mmHg (5-10) L 10/24/24 13:43 Hematocrit 51.2 % (42-52) 10/24/24 13:43 Hgb O2 Saturation 93.7 % (95-100) L 10/24/24 13:43 Carboxyhemoglobin 1.0 %THgb (0.4-20.1) 10/24/24 13:43 Methemoglobin 0.9 % (0.4-1.5) 10/24/24 13:43 Total Hemoglobin 16.7 g/dL (14-18) 10/24/24 13:43 Sodium 141.0 mmol/L (131-143) 10/24/24 13:43 Potassium 3.8 mmol/L (3.5-5.0) 10/24/24 13:43 Glucose 90.0 mg/dL (70-115) 10/24/24 13:43 Ionized Calcium 1.3 mmol/L (1.1-1.4) 10/24/24 13:43 O2 Delivery Device Room air 10/24/24 13:43 FiO2 21.0 % 10/24/24 13:43 Crepe Sole Scourer ID [place] 10/24/24 13:43 Sodium 139 mmol/L (136-145) 10/24/24 10:31 Potassium 4.1 mmol/L (3.5-5.1) 10/24/24 10:31 Chloride 107 mmol/L (98-107) 10/24/24 10:31 Carbon Dioxide 23 mmol/L (22-29) 10/24/24 10:31 Anion Gap 13.1 (5-19) 10/24/24 10:31 BUN 12 mg/dL (6-20) 10/24/24 10:31 Creatinine 0.8 mg/dL (0.7-1.2) 10/24/24 10:31 GFR Calculation 107.6 mL/min (90-130) 10/24/24 10:31 Glucose 98 mg/dL (65-115) 10/24/24 10:31 POC Glucose 95 mg/dL (70-110) 10/24/24 10:21 Calculated Osmolality 288 mOsm/kg (285-295) 10/24/24 10:31 Calcium 9.1 mg/dL (8.5-10.5) 10/24/24 10:31 Total Bilirubin 0.4 mg/dL (0.15-1.2) 10/24/24 10:31 AST 30 U/L (0-40) 10/24/24 10:31 ALT 57 U/L (0-41) H 10/24/24 10:31 Alkaline Phosphatase 121 U/L (40-130) 10/24/24 10:31 Troponin T Baseline < 6 ng/L (0-15) 10/24/24 10:31 Troponin T 120 Minute < 6.0 ng/L (0-15) 10/24/24 12:15 Delta Troponin T 0 ABS# (0-10) 10/24/24 12:15 Total Protein 6.7 g/dL (6.6-8.7) 10/24/24 10:31 Albumin 4.3 g/dL (3.5-5.2) 10/24/24 10:31 Globulin 2.4 g/dL (1.3-4.6) 10/24/24 10:31 All radiology interpretation(s) finalized by discharge EKG Data EKG 1: Interpretation: Initial EKG October 24, 2024 1029 normal sinus rhythm with a rate of 65 ME interval of 148 QTc of 386 no acute changes noted. No previous EKGs for comparison Discharge Plan Discharge Patient Disposition: Home Clinical Impression: Arm and leg pain, Hemiplegic migraine Prescriptions: New aspirin 81 mg tablet,delayed release (DR/EC) 81 mg PO DAILY Qty: 30 0RF No Action hydroxyzine HCl 25 mg tablet 25 mg PO BID PRN (Reason: Anxiety) 30 Days Qty: 60 5RF Protonix 40 mg tablet,delayed release (DR/EC) 40 mg PO DAILY PRN (Reason: acid reflux) Qty: 60 2RF rizatriptan [Maxalt] 10 mg tablet 10 mg PO Q2H PRN (Reason: Migraine Headache) 30 Days Qty: 30 3RF Rx Instructions: do not exceed 3 doses per 24 hrs Cialis 5 mg tablet 5 mg PO DAILY 30 Days Qty: 30 3RF Rx Instructions: take approximately 30min before sexual activity; do not use more than 1 dose per 24hrs aripiprazole 10 mg tablet See Rx Instructions .ROUTE .COMPLEX Qty: 30 2RF Dose Instruction: TAKE 1 TABLET BY MOUTH EVERY DAY FOR 30 DAYS Rx Instructions: TAKE 1 TABLET BY MOUTH EVERY DAY FOR 30 DAYS albuterol sulfate 90 mcg/actuation HFA aerosol inhaler 2 puff inhalation Q6H PRN (Reason: shortness of breath or wheezing) Qty: 6.7 2RF Zepbound 2.5 mg/0.5 mL pen injector 2.5 mg SUBCUT Q7D Discharge Orders: Discharge ED (Routine); Ordered 10/24/24 Ordered By: Jose Meléndez Referrals: Thomas Donaldson MD [Primary Care Provider, Family Practice] Discharge Diet: Usual diet Discharge Activity: Increase activity as tolerated Patient Instructions: Opioid Safety, Pain Management Activity Restrictions/Additional Instructions: Thank you for choosing [facility] for your healthcare needs today. It is very important that you follow up as instructed or that you return to the Emergency Department should you have concerns or if your condition changes or worsens in any way. You were seen in the emergency room with complaint of left arm and leg pain. Your evaluated by the on-call neurology they did not feel you had an acute stroke. CT of your head without contrast and CT of head and neck done with contrast did not show any acute findings or signs of acute or subacute stroke. Heart enzymes and EKG did not show any signs of acute coronary syndrome. Will discharge you home recommend take baby aspirin daily follow-up with your primary care doctor continue all your other medications as previously prescribed. Print Language: Estonian Coding Level of Care Code ED Development Engineer for Miriam Suarez
--- NOTE | 2024-10-24 11:21 | CT_ITS ---
WS: [id number] CT ANGIOGRAM CEREBRAL AND CAROTID ARTERIES HISTORY: L side numbness TECHNIQUE: CT angiogram is performed of the carotid and cerebral arteries. During arterial injection imaging is obtained from the skull vertex to the aortic arch in 1.25 mm imaging. Coronal and sagittal reformats are submitted. Additional multi planar reformats of the carotid and cerebral arteries are submitted, MIP imaging also reviewed. NASCET criteria utilized. All CT scans at [facility] use at least one of these dose optimization techniques: automated exposure control; mA and/or kV adjustment per patient size (includes targeted exams where dose is matched to clinical indication); or iterative reconstruction. CONTRAST: Omnipaque 350; 100 mL IV. DLP: 523.59 mGy.cm COMPARISON: Noncontrast CT head 10/24/2024 Carotid Angiogram: Right carotid: Common carotid artery: Arises normally from the innominate artery. No significant plaque or stenosis. Internal carotid artery: No plaque or stenosis. External carotid artery: Patent. Left carotid: Common carotid artery: Arises normally from the aorta. No significant plaque or stenosis. Internal carotid artery: No plaque or stenosis. External carotid artery: Patent. Right vertebral artery: Unremarkable. Left vertebral artery: Arises from the arch. Intact. LEFT vertebral artery is smaller caliber throughout its course. No wall thickening or evidence for dissection. Subclavian arteries: No stenosis or significant abnormality. Upper thorax: Normal. Thyroid gland: Normal. Osseous structures: Unremarkable. CEREBRAL ANGIOGRAM: Intracranial vertebral arteries: Small caliber distal vertebral artery. Basilar artery is normal. Basilar artery: No significant stenosis or occlusion. No aneurysm. Intracranial Internal carotid arteries: Demonstrates no significant stenosis or plaque. Middle cerebral arteries: Normal. Anterior cerebral arteries and ACOM: Normal. Posterior cerebral arteries and PCOM's: Normal. Very small caliber LEFT transverse sinus and sigmoid sinus. This is probably a normal variant. No thrombus is identified. Mastoid air cells: LEFT mucous retention cyst. Paranasal sinuses: Normal. Calvarium: Normal. CT/CT angio headneck* [id number] IMPRESSION: 1. No carotid artery stenosis or occlusion. 2. Small caliber LEFT vertebral artery. No wall thickening or evidence for dis section is evident. 3. Small caliber LEFT transverse and sigmoid sinus. This is probably normal va riant. No thrombus identified. 4. No aneurysms.
[2024-10-24] MEDS: iohexol 350 mg/mL 500 mL Btl (per mL) IV (11:43)
[2024-10-24 12:09] VITALS: BP 128/78; PULSE 65; O2SAT 95
[2024-10-24 12:45] LABS: Troponin 5 2HR < 6.0 ng/L (0-15); Troponin 5 2HR Delta 0 ABS# (0-10)
[2024-10-24 13:25] VITALS: RESP 17; O2SAT 95
[2024-10-24] MEDS: dexamethasone 10 mg/mL INJ IM (13:25)
[2024-10-24] MEDS: ketorolac 30 mg/mL INJ IVP (13:25)
[2024-10-24] MEDS: morphine 4 mg/mL SDV 1 mL IVP (13:25)
[2024-10-24 13:54] LABS: ABG PCO2 43.5 mmHg (35-45); ABG PH Result 7.38 (7.35-7.45); Alveolar-Arterial Oxygen Gradi 2.6 mmHg (5-10); Arterial Blood Gas Hematocrit 51.2 % (42-52); Base Excess ABG 0.4 mmol/L (-2.0-2.0); Blood Gas Allen Test Pos; Blood Gas Operator Identificat WALCI; Blood Gas Sample Site Radial, left; Blood Gas Sample Type Arterial; HCO3 ABG 25.9 mmol/L (22-26); HGB O2 Sat 93.7 % (95-100); Ionized Calcium Level - ABG 1.3 mmol/L (1.1-1.4); Methemoglobin 0.9 % (0.4-1.5); Oxygen Device ROOM AIR; Oxygen Saturation ABG 95.4; PO2 FiO2 Ratio Arterial Blood 357; Potassium Level - ABG 3.8 mmol/L (3.5-5.0); Total Hemoglobin 16.7 g/dL (14-18)
[2024-10-24 13:58] VITALS: BP 129/91; PULSE 57; O2SAT 95
[2024-10-24 14:15] VITALS: BP 134/92; PULSE 60; O2SAT 95
== END 2024-10-24 14:16 | disposition home or self-care (01) ==
PROVIDERS: Emergency Medicine; Emergency Provider Family Medicine; PCP Family Medicine
DX: G43.409 Hemiplegic migraine, not intractable, without status migrainosus (principal); E66.01 Morbid (severe) obesity due to excess calories; Z68.42 Body mass index [BMI] 45.0-49.9, adult; Z87.891 Personal history of nicotine dependence; Z79.85 Long-term (current) use of injectable non-insulin antidiabetic drugs; Z79.899 Other long term (current) drug therapy
CPT/HCPCS: 36415; 36416; 36600; 70450; 70496; 70498; 71045; 80051; 80053; 82330; 82805; 82962; 84484; 85025; 85610; 85730; 93005; 96372; 96374; 96375; 99285; J1100; J1885; J2270

== ENCOUNTER 2024-12-05 20:00 | Outpatient (CLI) | payer MEDICAID, SELFPAY | END 2024-12-05 20:01 | disposition home or self-care (01) | LOC: SLEEP 12-06 04:59 | PROVIDERS: PCP Family Medicine; Visit Provider Internal Medicine Pulmonary Disease | DX: G47.33 Obstructive sleep apnea (adult) (pediatric) (principal) | CPT/HCPCS: 95811 ==

== ENCOUNTER 2025-03-24 08:09 | Outpatient (CLI) | payer MEDICAID, SELFPAY ==
--- NOTE | 2025-03-24 08:15 | XRR_ITS ---
PROCEDURE INFORMATION: Exam: XR Right Knee Exam date and time: 03/24/2025 8:28 AM Age: 39 years old Clinical indication: Pain; Knee; Right; Prior surgery; Surgery date: 6+ months; Surgery type: Meniscus repair; Additional info: R knee pain TECHNIQUE: Imaging protocol: Radiologic exam of the right knee. Views: 3 views. COMPARISON: No relevant prior studies available. FINDINGS: Bones/joints: No acute fracture or dislocation. Trace joint effusion. Soft tissues: Normal. XR/XR knee RT 4V [id number] IMPRESSION: 1. No acute osseous findings. 2. Trace joint effusion.
== END 2025-03-24 08:10 | disposition home or self-care (01) ==
PROVIDERS: PCP Family Medicine; Visit Provider Family Medicine
DX: M25.561 Pain in right knee (principal)
CPT/HCPCS: 73564

== ENCOUNTER → 2025-03-28 11:21 | Outpatient (BNVA) | payer MEDICAID, SELFPAY | PROVIDERS: PCP Family Medicine; Visit Provider Orthopaedic Surgery | DX: M25.561 Pain in right knee (principal); G89.29 Other chronic pain | CPT/HCPCS: 99204 ==

== ENCOUNTER 2025-04-10 13:35 | Outpatient (CLI) | payer MEDICAID, SELFPAY ==
--- NOTE | 2025-04-10 13:45 | MR_ITS ---
WS: [id number] MRI RIGHT KNEE NONCONTRAST TECHNIQUE: Axial PD, coronal PD fat sat, coronal PD, sagittal PD, and sagittal PD fat-sat images obtained. CLINICAL INFORMATION: Right knee pain COMPARISON: None. FINDINGS: Distal quadriceps and patellar tendons are intact. Hypertrophic patella. Normal ACL and PCL. 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 Small suprapatellar effusion. Medial and lateral patellar retinacula appear intact. Moderate tricompartmental arthritis advanced for a patient of this age. Mild chronic thinning of the medial and lateral meniscus. No acute appearing meniscal tears. Medial and lateral collateral ligaments appear intact. Normal popliteal fossa. Small lobulated ganglion or synovial cyst along the fibula head measuring 2.2 x 0.5 cm. MR/MR knee RT wo con* [id number] IMPRESSION: 1. Moderate tricompartment arthritis advanced for patient this age. 2. Normal ACL and PCL. 3. Grade IV chondromalacia patella worse involving the medial patella facet wi th a small amount of subchondral edema. 4. Small suprapatellar effusion. 5. Mild chronic thinning of the medial and lateral meniscus. No acute appearin g meniscal tears. 6. No other acute findings. Outbridge grading: grade IV: full-thickness cartilage loss with underlying bone reactive changes
== END 2025-04-10 13:36 | disposition home or self-care (01) ==
LOC: RAD 13:35
PROVIDERS: PCP Family Medicine; Visit Provider Orthopaedic Surgery
DX: M25.561 Pain in right knee (principal)
CPT/HCPCS: 73721

== ENCOUNTER → 2025-04-20 09:22 | Outpatient (BNVA) | payer MEDICAID, SELFPAY | PROVIDERS: PCP Family Medicine; Visit Provider Orthopaedic Surgery | DX: S83.241A Other tear of medial meniscus, current injury, right knee, initial encounter (principal); M22.41 Chondromalacia patellae, right knee; S83.511A Sprain of anterior cruciate ligament of right knee, initial encounter; X58.XXXA Exposure to other specified factors, initial encounter | CPT/HCPCS: 99213 ==